=== PATIENT | male | born 1960 | race Hispanic/Latino ===

== ENCOUNTER 2023-12-05 10:02 | Outpatient (CLI) | payer BC | END 2023-12-05 10:03 | disposition home or self-care (01) | LOC: RAD 10:02 | PROVIDERS: ATTEND Physician Assistant | DX: R13.10 Dysphagia, unspecified (principal); R63.30 Feeding difficulties, unspecified | CPT/HCPCS: 74230 ==

== ENCOUNTER 2024-01-13 09:54 | Outpatient (CLI) | payer BC | END 2024-01-13 09:55 | disposition home or self-care (01) | LOC: SCSRAD 09:54 | PROVIDERS: ATTEND Internal Medicine | DX: Z01.818 Encounter for other preprocedural examination (principal); I67.9 Cerebrovascular disease, unspecified; I10 Essential (primary) hypertension; R01.1 Cardiac murmur, unspecified; L40.50 Arthropathic psoriasis, unspecified; Z86.73 Personal history of transient ischemic attack (TIA), and cerebral infarction without residual deficits | CPT/HCPCS: 71046 ==